=== PATIENT | female | born 1925 | race Caucasian/White ===

== ENCOUNTER → 2017-04-12 | Outpatient (CLI) | payer OTHER ==
[~2017-04-12] MED LIST: AMLODIPINE-ATO1 EAC4 PO; APRESOLIN50 MG PO; APRESOLINE100 MG PO; ARICEPT10 MG PO; ARTIFICIALS TEA30 ML BOTH EYES; ASCORBIC ACID500 M3 PO; BISACODYL5 MG PO; BUSPAR5 MG PO; BUSPIRONE HCL5 MG PO; C COMPLEX500 MG PO; CADUET 10/101 TABLET PO; CARBAMAZEPINE200 MG PO; CARVEDILOL25 MG PO; COLACE100 MG PO; COREG25 M1 PO; CORRECTOL5 M1 PO; Cipro PO; DIOVAN HCT 31 TABLE1 PO; DIOVAN320 MG PO; DULCOLAX10 MG PR; DULCOLAX5 MG PO; DUONEB 2.5-0.5 M3 ML IH; FEOSOL325 MG PO; FERROUS SULFAT325 MG PO; FOLIC ACID1 MG PO; FOLITAB 500 CA1 EACH PO; FOLVITE1 M1 PO; FRUIT C-100100 MG PO; Gentamicin Sulfate IV; HYDRALAZINE HC100 MG PO; IRON325 MG PO; K PHOS PO; LANSOPRAZOLE30 MG PO; LATANOPROST2.5 ML BOTH EYES; LEVOTHYROXINE175 MCG PO; LEVOXYL150 MCG PO; LEVOXYL175 MCG PO; LINZESS145 MCG; LOVENOX40 MG/0.4 SC; LUMIGAN 0.50 DROP/2.; Linzess PO; Lumigan 0.03% Ophth BOTH EYES; MACROBID100 MG PO; MILK OF MAGN PO; MIRTAZAPINE15 MG PO; NAMENDA10 MG PO; NORVASC10 MG PO; Namenda PO; OMEPRAZOLE20 MG PO; OXYCODONE-ACET1 EACH; OYSTER SHELL 51 EACH PO; PAIN & FEVER325 MG PO; PANTOPRAZOLE SO40 MG PO; PERCOCET 5/31 TABLET PO; PHENADOZ25 MG PR; PLAVIX75 MG PO; POLYETHYLENE GL17 GM PO; PREVACID30 MG PO; PROBIOTIC1 EAC1 PO; PROMETHAZINE HC25 M1 PO; PROTONIX40 MG PO; Protonix PO; REMERON15 M2 PO; RESTORIL15 MG PO; RESTORIL7.5 MG PO; SENNA CONCENTR8.6 MG PO; SENNA LAXATIVE1 EACH; SENNA PLUS TAB1 EACH PO; SENOKOT S,PE1 TABLET PO; SYNTHROID112 MCG PO; Senokot S,Pericolace PO; TEARS NATURALE30 ML; TEGRETOL200 MG PO; TYLENOL REGULA325 MG PO; Tears Naturale II,Ar BOTH EYES; Tums,OsCal PO; Tylenol Regular Stre PO; UTYMAX POWDER1 EACH PO; Vitamin B-12 IM; XALATAN2.5 ML BOTH EYES; carvedilol; estrace
== END ==
LOC: RAD 04-05 13:30
DX: R13.12 Dysphagia, oropharyngeal phase (principal)
CPT/HCPCS: 74230; 92611 GN; G8996 GN CI; G8997 GN CI; G8998 GN CI